=== PATIENT | female | born 1990 | race Asian ===

== ENCOUNTER 2018-07-26 12:44 | Outpatient (CLI) | payer BC ==
--- NOTE | 2018-07-26 15:14 | ULT ---
OB ULTRASOUND: INDICATIONS: Size and dates. FINDINGS: Single viable intrauterine . Gestational age by ultrasound is 20 weeks 6 days. Biometry me asurements are consistent, as below: BPD: 21 weeks 4 days HC: 21 weeks 1 day AC: 20 weeks 1 day FL: 20 weeks 5 days EFW: 358 g HEART RATE: 144 beats per minute PLACENTA: Posterior. PRESENTATION: Vertex. AMNIOTIC FLUID: Adequate. AGNIESZKA recorded at 12.2 cm. anatomy identified includes intracranial contents, four-chamber heart, stomach, kidneys, cord i nsertion, bladder, spine, face, extremities, and three vessel cord. No abnormality identified. IMPRESSION: A 52-fhpp-7-day gestation, by ultrasound. No abnormality identified. POS: JELANI
== END 2018-07-26 12:45 | disposition home or self-care (01) ==
LOC: SCSULT 12:44
PROVIDERS: ATTEND Family Medicine
DX: Z34.92 Encounter for supervision of normal pregnancy, unspecified, second trimester (principal); Z3A.20 20 weeks gestation of pregnancy
CPT/HCPCS: 76805

== ENCOUNTER 2018-11-25 16:49 | Day surgery (SDC) | payer BC, OTHER ==
[2018-11-25 18:05] VITALS: BMI 21.6
--- NOTE | 2018-11-25 19:12 | ER ---
DATE OF SERVICE: 11/25/2018 PRIMARY OB: Dr. Elana Farooq. CHIEF COMPLAINT: Decreased movement. HISTORY OF PRESENT ILLNESS: The patient is a 27-year-old G1, P0 female with an intrauterine at 39 weeks and 5 days, who is presenting today with complaints of no movement since this morning. The patient reports the last time she noticed a good movement was yesterday evening. The patient is 2 days from her due date and became very worried and came for evaluation. The patient denies any recent illness, fever, or fall. She denies headache, chest pain, or shortness of breath. Denies nausea, vomiting, diarrhea, or constipation. Denies new rashes, hip problems, knee problems, or muscle weakness. Denies vaginal bleeding, leakage of fluid, or uterine contractions. Denies urinary urgency. PAST MEDICAL HISTORY: Negative. PAST SURGICAL HISTORY: Negative. ALLERGIES: NO KNOWN DRUG ALLERGIES. MEDICATIONS: vitamins. OB HISTORY: She has gestational A1 diabetes, diet controlled. SOCIAL HISTORY: Denies drug, alcohol, or tobacco use. OB LABORATORY DATA: Blood type is A positive. Antibody screen is negative. RPR is nonreactive. She is GBS negative. She is rubella immune. HIV nonreactive. Hepatitis B surface antigen nonreactive. Her 1-hour Glucola was 193, Her 3 hours 187, 185, 155, and 77. REVIEW OF SYSTEMS: Per HPI. PHYSICAL EXAMINATION: VITAL SIGNS: Blood pressure 117/84, heart rate of 86, respiratory rate of 16, saturating 97% on room air, temperature 98.0. GENERAL: She appears to be in no acute distress. She is alert, oriented, cooperative, and pleasant to interact with. HEAD: Normocephalic and atraumatic. LUNGS: Clear to auscultation bilaterally. HEART: Has a regular rate and rhythm. ABDOMEN: Gravid, soft, and nontender. EXTREMITIES: Nontender and nonedematous. : Has been deferred. heart tracing performed for decreased movement, NST with a baseline in the 120s, moderate long-term variability, positive 15/15 accelerations, no decelerations. Tocometer shows some irritability, but no contraction pattern and none that she is feeling. Bedside ultrasound was performed to evaluate the amniotic fluid. The patient has a fluid present in all 4 quadrants with a clear visible pocket of 4.5 cm x 2.5 cm. The patient is a 27-year-old G1, P0 female with an intrauterine at 39 weeks and 5 days, presents for decreased movement. The patient has a reactive NST and normal fluid level. The patient has been given reassurance and is being discharged to home with instructions to follow up with her primary OB as scheduled on Sunday. Job ID: [id number]
== END 2018-11-25 18:22 | disposition home or self-care (01) ==
LOC: L&D/OP 16:49
PROVIDERS: ATTEND Family Medicine
DX: O36.8130 Decreased fetal movements, third trimester, not applicable or unspecified (principal); O24.410 Gestational diabetes mellitus in pregnancy, diet controlled; Z3A.39 39 weeks gestation of pregnancy; Z79.899 Other long term (current) drug therapy
CPT/HCPCS: 76815; 99281

== ENCOUNTER 2018-11-29 10:07 | Inpatient (IN) | payer BC, MEDICAID ==
[2018-12-01 23:14] VITALS: BMI 21.9
[2018-12-01] MEDS: Lactated Ringer's 1,000 ML IV SCH (23:20)
[2018-12-01 23:32] LABS: Hemoglobin 13.8 g/dL (12.0-16.0); Mean Corpuscular HGB CONC 34.1 g/dL (32.0-36.0); Mean Corpuscular Hemoglobin 33.5 pg (27.0-31.0); Mean Corpuscular Volume 98.1 fL (78.0-98.0); Mean Platelet Volume 7.3 fL (7.4-10.4); Platelet Count 224 thou/uL (130-400); RBC Distribution Width 12.4 % (11.5-14.5); Red Blood Cell (RBC) Count 4.12 mill/uL (4.20-5.40); White Blood Cell (WBC) Count 8.9 thou/uL (4.8-10.8)
[2018-12-01] MEDS ORDERED: Ondansetron PF 4 MG/2 ML Vial IVP PRN (23:43)
[2018-12-01] MEDS ORDERED: Zolpidem Tartrate 5 MG TAB PO PRN (23:43)
[2018-12-01] MEDS ORDERED: Butorphanol Tartrate 1 MG/ML VIAL SLOW IVP PRN (23:43)
[2018-12-01] MEDS ORDERED: Acetaminophen 500 MG TAB PO PRN (23:43)
[2018-12-01] MEDS ORDERED: Promethazine HCl 25 MG/ML VIAL IM PRN (23:43)
[2018-12-01] MEDS ORDERED: NS / Oxytocin 40 units/1000ml 1,000 ML IV SCH (23:45)
[2018-12-01] MEDS ORDERED: Misoprostol 200 MCG TAB RC PRN (23:45)
[2018-12-01] MEDS ORDERED: Carboprost 250 MCG/ML AMP IM PRN (23:45)
[2018-12-01] MEDS ORDERED: HYDROcodone/Acetaminophen 5/325 mg Tablet PO PRN ×2 (23:45)
[2018-12-01] MEDS ORDERED: NS w/ Oxytocin 10 units 500 ML IV SCH ×2 (23:45)
[2018-12-01] MEDS ORDERED: Ibuprofen 800 MG TAB PO PRN (23:45)
[2018-12-01] MEDS ORDERED: Lidocaine 1% (PF) 30 ML VIAL SC PRN (23:45)
[2018-12-01] MEDS ORDERED: Methylergonovine 0.2 MG/ML VIAL IM PRN (23:45)
[2018-12-01] MEDS ORDERED: Misoprostol 100 MCG TAB VAG PRN (23:46)
[2018-12-02 00:29] LABS: HBSAg Index 0.24 S/CO (0-0.99); Hep B Surf Ag Non-Reactive S/CO (NonReactive)
[2018-12-02 00:30] LABS: Syphilis Antibody Nonreactive (Nonreactive); Syphilis Antibody Index 0.04 S/CO (<1.00 Non-Reactive)
[2018-12-02] MEDS ORDERED: Misoprostol 200 MCG TAB RC PRN (03:56)
[2018-12-02] MEDS: Lactated Ringer's 1,000 ML IV SCH ×2 (06:38→10:43)
[2018-12-02] MEDS ORDERED: Fentanyl 4 mcg/Bup 0.1% Cadd 100 ML ONE (09:55)
[2018-12-02] MEDS ORDERED: Lidocaine 1.5%/Epinephrine 1:200,000 5 ML AMPUL IJ ONE (09:56)
[2018-12-02] MEDS ORDERED: diphenhydrAMINE 50 MG/ML VIAL IVP PRN (10:34)
[2018-12-02] MEDS ORDERED: Ondansetron PF 4 MG/2 ML Vial IVP PRN ×2 (10:34→14:17)
[2018-12-02] MEDS ORDERED: Promethazine HCl 25 MG/ML VIAL IM PRN (10:34)
[2018-12-02] MEDS ORDERED: Naloxone HCl 0.4 mg/ml Vial IVP PRN ×2 (10:34)
[2018-12-02] MEDS ORDERED: Acetaminophen 325 MG TAB PO PRN (10:34)
[2018-12-02] MEDS ORDERED: Lactated Ringer's 500 ML IV PRN (10:34)
[2018-12-02] MEDS ORDERED: Eucerin (Mineral Oil/Petrolatum,White) 30 gm Jar TOP PRN (10:34)
[2018-12-02] MEDS ORDERED: ePHEDrine/0.9% NaCl/PF SYRINGE 50 mg/10 ml SLOW IVP PRN (10:34)
[2018-12-02] MEDS ORDERED: Communication Order-Pharmacy FS SCH (10:45)
[2018-12-02] MEDS ORDERED: Fentanyl 4 mcg/Bupivacaine 0.1% Cassette 100 ML EPIDURAL SCH (10:45)
[2018-12-02] MEDS ORDERED: NS / Oxytocin 40 units/1000ml 1,000 ML ONE (11:20)
[2018-12-02] MEDS ORDERED: Lidocaine 1% (PF) 30 ML VIAL ONE (11:20)
[2018-12-02] MEDS ORDERED: Preparation H Ointment 28 GM TUBE PR PRN (14:17)
[2018-12-02] MEDS ORDERED: Milk Of Magnesia 30 ML UDCUP PO PRN (14:17)
[2018-12-02] MEDS ORDERED: NS / Oxytocin 40 units/1000ml 1,000 ML IV SCH (14:17)
[2018-12-02] MEDS ORDERED: diphenhydrAMINE 25 MG CAP PO PRN (14:17)
[2018-12-02] MEDS ORDERED: Acetaminophen/Codeine 30-300mg Tablet PO PRN (14:17)
[2018-12-02] MEDS ORDERED: HYDROcodone/Acetaminophen 5/325 mg Tablet PO PRN (14:17)
[2018-12-02] MEDS ORDERED: Bisacodyl 10 MG SUPP PR PRN (14:17)
[2018-12-02] MEDS: Ibuprofen 800 MG TAB PO SCH ×2 (19:00→21:35)
[2018-12-02] MEDS: Ferrous Sulfate 325 MG TAB PO SCH (19:00)
[2018-12-02] MEDS: Prenatal Vitamin 1 TAB PO SCH (19:00)
[2018-12-02] MEDS: Docusate Calcium (SURFAK) 240 MG CAP PO SCH ×2 (19:00→21:35)
[2018-12-02] MEDS: Lanolin Ointment 7 GM TUBE TOP PRN (19:18)
[2018-12-03] MEDS: Benzocaine/Menthol 20-0.5% 60 ML CAN TOP PRN (05:32)
[2018-12-03] MEDS: Ibuprofen 800 MG TAB PO SCH ×3 (05:32→21:50)
[2018-12-03] MEDS: Ferrous Sulfate 325 MG TAB PO SCH ×2 (07:40→15:27)
[2018-12-03] MEDS ORDERED: Acetaminophen/Codeine 30-300mg Tablet PO PRN ×2 (07:52→07:53)
[2018-12-03] MEDS ORDERED: HYDROcodone/Acetaminophen 5/325 mg Tablet PO PRN (07:54)
[2018-12-03] MEDS: Docusate Calcium (SURFAK) 240 MG CAP PO SCH ×2 (09:36→21:50)
[2018-12-03] MEDS: Prenatal Vitamin 1 TAB PO SCH (09:36)
[2018-12-03] MEDS: Lanolin Ointment 7 GM TUBE TOP PRN (09:36)
[2018-12-04] MEDS: Ibuprofen 800 MG TAB PO SCH (05:48)
[2018-12-04] MEDS: Lanolin Ointment 7 GM TUBE TOP PRN ×2 (05:49→08:05)
[2018-12-04] MEDS: Docusate Calcium (SURFAK) 240 MG CAP PO SCH (08:00)
[2018-12-04] MEDS: Prenatal Vitamin 1 TAB PO SCH (08:00)
[2018-12-04] MEDS: Benzocaine/Menthol 20-0.5% 60 ML CAN TOP PRN (08:01)
[2018-12-04] MEDS: Ferrous Sulfate 325 MG TAB PO SCH (08:01)
[2018-12-04 08:54] VITALS: BP 103/55; TEMP 98
== END 2018-12-04 10:38 | disposition home or self-care (01) | DRG 807 ==
LOC: EDSTATUS 13:58 → L&D 12-01 22:27 → 3SW 12-02 17:16
PROVIDERS: ADMIT Family Medicine; ATTEND Family Medicine
PROC: 10E0XZZ Delivery of Products of Conception, External Approach (ICD-10-PCS; principal; 2018-12-02)
PROC: 0KQM0ZZ Repair Perineum Muscle, Open Approach (ICD-10-PCS; 2018-12-02)
PROC: 10907ZC Drainage of Amniotic Fluid, Therapeutic from Products of Conception, Via Natural or Artificial Opening (ICD-10-PCS; 2018-12-02)
DX: O48.0 Post-term pregnancy (principal); Z37.0 Single live birth; O24.420 Gestational diabetes mellitus in childbirth, diet controlled; Z3A.40 40 weeks gestation of pregnancy; O70.1 Second degree perineal laceration during delivery
CPT/HCPCS: 36415; 51702; 85027; 86780; 86850; 86900; 86901; 87340; J2001; J2405; J3490